=== PATIENT | male | born 1975 | race Caucasian/White ===

== ENCOUNTER 2024-08-15 16:02 | Emergency (ER) | payer MEDICAID, SELFPAY ==
[2024-08-15] VITALS (9 sets, daily range): BP systolic 90–118; BP diastolic 56–78; PULSE 50–66; RESP 14–22; TEMP 36.6–36.7; O2SAT 95–98
--- NOTE | 2024-08-15 16:02 | ECG_ITS ---
APPROVED REPORT Exam: Resting ECG HR:70 bpm ECG Measurements Heart Rate 70 AXES QRSd 114 QRS 108 QT 455 T 59 QTc 476 Conclusion ATRIAL FIBRILLATION RIGHT AXIS DEVIATION [QRS AXIS > 100] INCOMPLETE RIGHT BUNDLE BRANCH BLOCK [90+ ms QRS DURATION, TERMINAL R IN V1/V2, 40+ ms S IN I/aVL/V4/V5/V6] PROLONGED QT INTERVAL ABNORMAL ECG UNCONFIRMED REPORT Electronically signed by : Marita Hughes, 08/15/2024 20:13:17
--- NOTE | 2024-08-15 16:05 | ED_ITS ---
Discharge Plan Disposition Patient Disposition: Home, Self-Care Condition: Good Prescriptions Prescriptions: New naloxone [Narcan] 4 mg/actuation spray,non-aerosol 1 spray intranasal Q2M Qty: 1 0RF Rx Instructions: spray 1 dose into ONE nostril; alternate nostrils w each dose until help arrives No Action cephalexin 500 MG capsule 500 mg PO TID Qty: 30 0RF Referrals Follow up/Referrals: Provider,Referral, MD [Primary Care Provider] - See instructions Activity Restrictions/Add. Instructions Additional Instructions/Restrictions: Ilicit substances increase risk of injury and . It is advised to stop using these substances. Drink at least 80 oz water per day and eat a balanced diet. Please follow up with your primary care provider in 2-3 days. Please return to ED if your symptoms worsen, change in location, change in severity, new symptoms develop or if you become concerned for your health. Clinical Impressions Clinical Impression: Drug overdose Qualifiers: Encounter type: initial encounter Injury intent: accidental or unintentional Qualified Code(s): T50.901A - Poisoning by unspecified drugs, medicaments and biological substances, accidental (unintentional), initial encounter Instructions Patient Instructions: DI for Drug Overdose in Adults Print Language Print Language: [place] Discharge ED Provider: Marita Hughes General Adult HPI General Chief complaint: Overdose Stated complaint: Unresposive Time Seen by Provider: 08/15/24 16:05 History of Present Illness HPI narrative: [place] Jaramillo is a 49 y/o male found unresponsive. Patient reportedly dropped off by his friends after using heroin. Patient was found to be apneic and unresponsive by EMS. EMS administered 2 mg intranasal Narcan and 2 mg IV Narcan. Patient's respiratory status improved and he became aggressive. No further history able to be obtained from patient upon arrival. Related Data Previous Rx's ?Medication ?Instructions ?Recorded cephalexin 500 mg capsule 500 mg PO TID #30 caps 08/11/19 naloxone 4 mg/actuation nasal 1 spray intranasal Q2M #1 ea 08/15/24 spray (Narcan) Allergies Allergy/AdvReac Type Severity Reaction Status Date / Time No Known Allergies Allergy Unverified 11/06/17 14:45 [facility] Disclaimer: The information contained in this section may have been updated after the patient was seen, as this information can be updated by other users. Social History Smoking Status: Unknown if ever smoked alcohol intake: never current occupational status: employed Travel in the last 8 weeks: None ROS Obtained: Yes unobtainable due to mental status Physical Exam General General appearance: appears intoxicated and in distress Head Head exam: atraumatic Eye Eye exam: Present PERRL (pinpoint bilaterally) ENT ENT exam: Present normal exam Neck Neck exam: Present full ROM Chest Chest inspection: Present normal inspection and symmetric chest wall rise Respiratory Respiratory exam: Present normal lung sounds bilaterally; Absent respiratory distress Cardiovascular Cardiovascular exam: Present regular rate and irregular rhythm Abdominal Exam Abdominal exam: Present soft; Absent tenderness or trauma Extremities Exam Extremities exam: Present full ROM; Absent edema Neurological Exam Neurological exam: Present alert; Absent oriented X3 Expanded Neurological Exam Coma scale eye opening: Spontaneous Coma scale motor response: Localizes to pain Coma scale verbal response: Confused Coma scale total: 13 Medical Decision Making Medical Records Screening: Per USPSTF and CDC recommendations, given the prevalence of disease in our region, it is our hospital?s policy to screen for HIV and viral Hepatitis for all patients aged 18 and over and those with ongoing risk factors. Faisal Inquiry Pt receiving controlled substance: No Vital Signs: 08/15/24 16:03 08/15/24 16:30 08/15/24 17:00 Temperature 97.9 F Temperature Source Oral Pulse Rate 62 57 L Pulse Rate [Right] 66 Respiratory Rate 22 18 20 Blood Pressure Blood Pressure [Right Arm] 118/78 Blood Pressure Mean Blood Pressure Mean [Right Arm] 91 Blood Pressure Source [Right Arm] Manual Cuff/ Doppler 02 Sat by Pulse Oximetry 96 96 95 Oxygen Delivery Method Room Air Room Air Room Air 08/15/24 17:30 08/15/24 19:00 08/15/24 19:28 Temperature 98.1 F Temperature Source Tympanic Pulse Rate 51 L 55 L 50 L Pulse Rate [Right] Respiratory Rate 18 14 14 Blood Pressure 100/65 L 95/56 L Blood Pressure [Right Arm] Blood Pressure Mean 62 Blood Pressure Mean [Right Arm] Blood Pressure Source [Right Arm] 02 Sat by Pulse Oximetry 95 97 97 Oxygen Delivery Method Room Air Room Air Room Air 08/15/24 19:30 08/15/24 20:00 Temperature Temperature Source Pulse Rate 51 L 55 L Pulse Rate [Right] Respiratory Rate 14 14 Blood Pressure 91/57 L 90/56 L Blood Pressure [Right Arm] Blood Pressure Mean 64 62 Blood Pressure Mean [Right Arm] Blood Pressure Source [Right Arm] 02 Sat by Pulse Oximetry 96 98 Oxygen Delivery Method Room Air Room Air Lab Data Lab Results 08/15/24 16:06: HIV 1&2 Antibody Rapid Nonreactive Orders (Tests/Meds): ED MEDICATIONS Generic Name Dose Route Start Last Admin Trade Name Freq PRN Reason Stop Dose Admin Sodium Chloride 10 ml 08/15/24 16:28 Sodium Chloride 0.9% 10ml Vial IV 09/14/24 16:27 NEEDED PRN to Dilute Lorazepam inj Discontinued Medications Generic Name Dose Route Start Last Admin Trade Name Freq PRN Reason Stop Dose Admin Droperidol 2.5 mg 08/15/24 16:27 08/15/24 16:28 Droperidol 5mg/2ml Vial IV 08/15/24 16:28 2.5 mg ONCE ONE Administration Lorazepam 1 mg 08/15/24 16:28 08/15/24 16:29 Lorazepam 2mg/Ml Vial IV 08/15/24 16:29 1 mg ONCE ONE Administration ORDERS Category Date Time Status Consult [employer] [CONS] Routine Cons 08/15/24 20:18 Active HIV (1&2) Antibody Rapid Stat Lab 08/15/24 16:06 Completed Hep C Ab with Reflex to RNA Stat Lab 08/15/24 16:06 Received ECG Data Tracing #1: I reviewed this ECG and interpreted as documented below: Atrial fibrillation with a rate of 70. Significant artifact due to patient's condition. Mild QT prolongation at 455. No evidence of ischemia. ECG initial impression date: 08/15/24 ECG initial impression time: 16:10 Medical Decision Narrative: Patient is a 49-year-old male presenting for unresponsive episode in the setting of heroin use. Differential diagnosis includes but is not limited to, trauma, intentional overdose, accidental drug overdose. On arrival, patient is hemodynamically stable and in moderate distress. Patient received significant amount of Narcan which caused acute withdrawal symptoms. Patient was reportedly agitated and aggressive prior to arrival. Patient minimally redirectable in the department and continually trying to get out of the bed. Patient's wet clothes were removed and he was placed in a gown with warm blankets. No evidence of trauma was found on patient's physical exam. Due to patient's agitation, he was treated with 1 mg of Ativan and 2.5 mg of droperidol. During patient's time in the emergency department, he remained stable, compliant, and in no distress. Patient's significant other presented to bedside and states she is the one who picked him up from the gas station. She states she is comfortable taking the patient home. Once the patient was able to ambulate through the department without assistance, his mental status had returned to baseline and he was stable for discharge. Patient denied intentional drug overdose, therefore psychiatry or involuntary hold was not deemed necessary at this time. Patient not currently interested in addiction medicine. Patient was discharged with a Narcan kit. Marita Hughes MD PGY-3, Emergency Medicine Critical Care Critical Care Time Critical Care Time: No
[2024-08-15] MEDS: droPERidol 5MG/2ML VIAL 2.5 MG IV (16:28)
[2024-08-15] MEDS: LORazepam 2MG/ML VIAL 1 MG IV (16:29)
[2024-08-15 17:04] LABS: HIV (1&2) Antibody Rapid NONREACTIVE (NONREACTIVE)
[2024-08-15] MEDS: NALOXONE HCL 4MG SPRAY 4 MG NS (20:21)
[2024-08-17 08:11] LABS: HCV Ab Non Reactive (Non Reactive)
--- NOTE | 2024-08-18 18:49 | PEERSUPPORT ---
Peer Support Note Patient Information Patient Information: DOS: 08/18/2024 Reason: PS Consult Follow up Ps attempted contact, female answers phone number from chart. Female stated [place] is not around to talk, and takes Ps name/contact number to return phone call. Ongoing Ps will attempt to make contact, to provide support and resources.
--- NOTE | 2024-08-21 16:27 | PEERSUPPORT ---
Peer Support Note Patient Information Patient Information: DOS: 08/21/2024 Reason: OUD/ED PS Consult Pt reaches out to Ps. Pt shares he is struggling with a five year rosales of using heroin and now fentanyl. He says his addiction started with pain pills that became too expensive that led him to using heroin as it is cheaper and more potent. Pt is feeling scared by his recent visit to the ED and feels very larisa to be alive. He since has been discussing and looking into inpatient treatment facilities for his OUD. He is scared of the sickness of withdrawals and detox, however he is wanting to take a step to getting well. PS and Pt discuss treatment options: Medical detox Inpatient Treatment 30-120 days Outpatient Treatment PLAN: Pt stated he plans on setting down with his family and discussing his plan and having their support along the way. Pt agrees to weekly follow up calls to assist with support. Thank you for allowing Ps with [facility] in caring for the patient!
== END 2024-08-15 20:23 | disposition home or self-care (01) ==
PROVIDERS: Emergency Provider Student in an Organized Health Care Education/Training Program
DX: T40.1X1A Poisoning by heroin, accidental (unintentional), initial encounter (principal); I48.91 Unspecified atrial fibrillation; R45.1 Restlessness and agitation
CPT/HCPCS: 86803; 87389; 93005; 96374; 96375; 99285; J1790; J2060